=== PATIENT | female | born 1975 | race Caucasian/White ===

== ENCOUNTER → 2023-05-16 12:58 | Outpatient (REF) | payer BC, SELFPAY | LOC: HWWDC 12:58 | PROVIDERS: ATTENDING PHYSICIAN Family Medicine | DX: Z12.31 Encounter for screening mammogram for malignant neoplasm of breast (principal) | CPT/HCPCS: 77063; 77067 ==

== ENCOUNTER → 2024-10-19 12:51 | Outpatient (REF) | payer OTHER, SELFPAY | LOC: WDC 12:51 | PROVIDERS: ATTENDING PHYSICIAN Nurse Practitioner Women's Health; FAMILY PHYSICIAN Family Medicine | DX: Z12.31 Encounter for screening mammogram for malignant neoplasm of breast (principal) | CPT/HCPCS: 77063; 77067 ==

== ENCOUNTER → 2024-11-02 09:59 | Outpatient (REF) | payer OTHER, SELFPAY | LOC: WDC 09:59 | PROVIDERS: ATTENDING PHYSICIAN Nurse Practitioner Women's Health; FAMILY PHYSICIAN Family Medicine | DX: R92.8 Other abnormal and inconclusive findings on diagnostic imaging of breast (principal) | CPT/HCPCS: 76642 ==